=== PATIENT | female | born 1965 | race Caucasian/White ===

== ENCOUNTER 2018-07-20 14:18 | Outpatient (CLI) | payer OTHER ==
[~2018-07-20 14:18] MED LIST: CRESTOR5 MG PO; MEDROLPACK PO; SYNTHROID125 MCG PO; ZYRTEC10 MG PO
== END 2018-07-20 14:33 | disposition home or self-care (01) ==
LOC: MAMO-SONO 14:18
DX: N60.11 Diffuse cystic mastopathy of right breast (principal); Z12.31 Encounter for screening mammogram for malignant neoplasm of breast

== ENCOUNTER 2019-12-18 19:45 | Emergency (ER) | payer OTHER ==
[~2019-12-18] VITALS: Ht 162.6 cm; Wt 67.1 kg
[2019-12-18] MEDS ORDERED: SYNTHROID150 MCG (20:04)
[2019-12-18] MEDS ORDERED: [UNRECOGNIZED DRUG - OTHER] (20:05)
== END 2019-12-18 23:57 | disposition home or self-care (01) ==
LOC: ER 19:45
DX: K59.09 Other constipation (principal); R10.84 Generalized abdominal pain
CPT/HCPCS: 74177; Q9965